=== PATIENT | male | born 1960 | race Two or more races ===

== ENCOUNTER 2021-01-24 16:06 | Outpatient (CLI) | payer OTHER, SELFPAY ==
[2021-01-24 16:31] LABS: Basophils Absolute Auto 0.1 K/mm3 (0.0-0.1); Basophils Percent Auto 0.5 % (0.2-1.2); Eosinophils Absolute Auto 0.2 K/mm3 (0-0.3); Eosinophils Percent Auto 1.6 % (0-4.4); Hematocrit 39.2 % (42.0-52.0); Hemoglobin 12.8 g/dL (14.0-18.0); Immature Granulocyte Absolute 0.02 K/mm3 (0.00-0.031); Immature Granulocyte Percent A 0.2 % (0-0.5); Lymphocytes Absolute Auto 5.08 K/mm3 (0.9-3.2); Lymphocytes Percent Auto 48.9 % (18.3-44.2); Mean Corpuscular HGB Conc 32.7 g/dl (32-36); Mean Corpuscular Hemoglobin 30.5 pg (26-34); Mean Corpuscular Volume 93.6 fl (80-100); Mean Platelet Volume 10.5 fl (7.4-10.4); Monocytes Absolute Auto 0.6 K/mm3 (0.1-0.6); Monocytes Percent Auto 5.7 % (2.6-8.5); Neutrophils Absolute Auto 4.5 K/mm3 (1.3-6.7); Neutrophils Percent Auto 43.1 % (45.5-73.1); Platelet Count Result 253 k/mm3 (150-375); Red Blood Count 4.19 M/mm3 (4.6-6.20); Red Cell Distribution Width 13.6 % (11.5-14.5); White Blood Count 10.4 K/mm3 (4.5-10.0)
[2021-01-24 16:43] LABS: Alanine Aminotransferase 15 U/L (4-50); Albumin Level 4.3 g/dL (3.5-5.1); Alkaline Phosphatase 59 U/L (38-126); Anion Gap 8 mmol/L (8-16); Aspartate Amino Transferase 29 U/L (17-59); Bilirubin,Total 0.2 mg/dL (0.2-1.3); Blood Urea Nitrogen 19 mg/dL (9-20); Calcium 9.2 mg/dL (8.4-10.2); Carbon Dioxide 28 mmol/L (22-30); Chloride 105 mmol/L (98-107); Cholesterol 177 mg/dL (0-200); Estimated Glomerular Filt Rate > 60; Glucose 83 mg/dL (75-110); HDL Direct 39 mg/dL; Potassium 4.2 mmol/L (3.4-5.0); Sodium 141 mmol/L (137-145); Triglycerides 139 mg/dL (<150)
[2021-01-24 16:54] LABS: LDL Cholesterol Direct 89 mg/dL
[2021-01-24 17:13] LABS: Prostate Specific Antigen 0.6 ng/mL (< OR = 4.0)
[2021-01-24 19:11] LABS: Vitamin D 25 Hydroxy 41.8 ng/mL
== END 2021-01-24 16:07 | disposition home or self-care (01) ==
PROVIDERS: PCP Family Medicine; Visit Provider Family Medicine
DX: Z00.00 Encounter for general adult medical examination without abnormal findings (principal); E55.9 Vitamin D deficiency, unspecified; I10 Essential (primary) hypertension; Z12.5 Encounter for screening for malignant neoplasm of prostate; Z13.220 Encounter for screening for lipoid disorders
CPT/HCPCS: 36415; 80053; 80061; 82306; 84153; 84443; 85025

== ENCOUNTER 2021-03-26 08:55 | Outpatient (CLI) | payer OTHER, SELFPAY ==
[2021-03-26 09:40] LABS: Basophils Absolute Auto 0.1 K/mm3 (0.0-0.1); Basophils Percent Auto 0.6 % (0.2-1.2); Eosinophils Absolute Auto 0.2 K/mm3 (0-0.3); Eosinophils Percent Auto 2.5 % (0-4.4); Hematocrit 42.3 % (42.0-52.0); Hemoglobin 13.8 g/dL (14.0-18.0); Immature Granulocyte Absolute 0.02 K/mm3 (0.00-0.031); Immature Granulocyte Percent A 0.2 % (0-0.5); Lymphocytes Absolute Auto 3.89 K/mm3 (0.9-3.2); Lymphocytes Percent Auto 45.7 % (18.3-44.2); Mean Corpuscular HGB Conc 32.6 g/dl (32-36); Mean Corpuscular Hemoglobin 30.3 pg (26-34); Mean Corpuscular Volume 92.8 fl (80-100); Mean Platelet Volume 10.5 fl (7.4-10.4); Monocytes Absolute Auto 0.5 K/mm3 (0.1-0.6); Monocytes Percent Auto 5.5 % (2.6-8.5); Neutrophils Absolute Auto 3.9 K/mm3 (1.3-6.7); Neutrophils Percent Auto 45.5 % (45.5-73.1); Platelet Count Result 273 k/mm3 (150-375); Red Blood Count 4.56 M/mm3 (4.6-6.20); Red Cell Distribution Width 13.2 % (11.5-14.5); White Blood Count 8.5 K/mm3 (4.5-10.0)
[2021-03-26 09:48] LABS: Alanine Aminotransferase 53 U/L (4-50); Albumin Level 4.1 g/dL (3.5-5.1); Alkaline Phosphatase 53 U/L (38-126); Anion Gap 6 mmol/L (8-16); Aspartate Amino Transferase 96 U/L (17-59); Bilirubin,Total 0.5 mg/dL (0.2-1.3); Blood Urea Nitrogen 14 mg/dL (9-20); Calcium 8.9 mg/dL (8.4-10.2); Carbon Dioxide 28 mmol/L (22-30); Chloride 102 mmol/L (98-107); Cholesterol 167 mg/dL (0-200); Estimated Glomerular Filt Rate > 60; Glucose 96 mg/dL (65-110); HDL Direct 35 mg/dL; Potassium 4.1 mmol/L (3.4-5.0); Sodium 136 mmol/L (137-145); Triglycerides 60 mg/dL (<150)
[2021-03-26 09:59] LABS: LDL Cholesterol Direct 99 mg/dL
[2021-03-26 10:44] LABS: Vitamin D 25 Hydroxy 59.9 ng/mL
[2021-03-26 10:59] LABS: Prostate Specific Antigen 0.4 ng/mL (< OR = 4.0)
== END 2021-03-26 08:56 | disposition home or self-care (01) ==
LOC: ANHLAB 08:57
PROVIDERS: PCP Family Medicine; Visit Provider Family Medicine
DX: Z00.00 Encounter for general adult medical examination without abnormal findings (principal); I10 Essential (primary) hypertension; Z13.220 Encounter for screening for lipoid disorders; E55.9 Vitamin D deficiency, unspecified; Z12.5 Encounter for screening for malignant neoplasm of prostate
CPT/HCPCS: 36415; 80053; 80061; 82306; 84153; 84443; 85025; G0103

== ENCOUNTER 2021-04-22 08:20 | Outpatient (CLI) | payer OTHER, SELFPAY ==
[2021-04-22 09:56] LABS: Alanine Aminotransferase 32 U/L (4-50); Albumin Level 4.3 g/dL (3.5-5.1); Alkaline Phosphatase 67 U/L (38-126); Aspartate Amino Transferase 64 U/L (17-59); Bilirubin,Total 0.4 mg/dL (0.2-1.3)
== END 2021-04-22 08:21 | disposition home or self-care (01) ==
LOC: ANHLAB 08:22
PROVIDERS: PCP Family Medicine; Visit Provider Nurse Practitioner Family
DX: R74.8 Abnormal levels of other serum enzymes (principal)
CPT/HCPCS: 36415; 80076

== ENCOUNTER 2022-04-29 08:04 | Outpatient (CLI) | payer OTHER, SELFPAY ==
[2022-04-29 08:51] LABS: Basophils Absolute Auto 0.1 K/mm3 (0.0-0.1); Basophils Percent Auto 0.6 % (0.2-1.2); Eosinophils Absolute Auto 0.2 K/mm3 (0-0.3); Eosinophils Percent Auto 1.5 % (0-4.4); Hematocrit 44.2 % (42.0-52.0); Hemoglobin 14.5 g/dL (14.0-18.0); Immature Granulocyte Absolute 0.05 K/mm3 (0.00-0.031); Immature Granulocyte Percent A 0.5 % (0-0.5); Lymphocytes Percent Auto 39.4 % (18.3-44.2); Mean Corpuscular HGB Conc 32.8 g/dl (32-36); Mean Corpuscular Hemoglobin 30.7 pg (26-34); Mean Corpuscular Volume 93.4 fl (80-100); Monocytes Absolute Auto 0.6 K/mm3 (0.1-0.6); Monocytes Percent Auto 5.3 % (2.6-8.5); Neutrophils Absolute Auto 5.8 K/mm3 (1.3-6.7); Neutrophils Percent Auto 52.7 % (45.5-73.1); Platelet Count Result 267 k/mm3 (150-375); Red Blood Count 4.73 M/mm3 (4.6-6.20); Red Cell Distribution Width 13.5 % (11.5-14.5); White Blood Count 10.9 K/mm3 (4.5-10.0)
[2022-04-29 08:59] LABS: Hemoglobin A1C 5.6 % (<5.7)
[2022-04-29 09:00] LABS: Alanine Aminotransferase 24 U/L (6-50); Albumin Level 4.6 g/dL (3.5-5.1); Alkaline Phosphatase 79 U/L (38-126); Anion Gap 9 mmol/L (8-16); Aspartate Amino Transferase 33 U/L (17-59); Bilirubin,Total 0.6 mg/dL (0.2-1.3); Blood Urea Nitrogen 17 mg/dL (9-20); Calcium 9.6 mg/dL (8.4-10.2); Carbon Dioxide 26 mmol/L (22-30); Chloride 103 mmol/L (98-107); Cholesterol 206 mg/dL (0-200); Estimated Glomerular Filt Rate > 60; Glucose 101 mg/dL (65-110); HDL Direct 36 mg/dL; Potassium 4.2 mmol/L (3.4-5.0); Sodium 138 mmol/L (137-145); Triglycerides 123 mg/dL (<150)
[2022-04-29 09:11] LABS: LDL Cholesterol Direct 123 mg/dL
[2022-04-29 09:23] LABS: Vitamin D 25 Hydroxy 50.4 ng/mL
[2022-04-29 09:31] LABS: Prostate Specific Antigen 0.7 ng/mL (< OR = 4.0)
== END 2022-04-29 08:05 | disposition home or self-care (01) ==
LOC: ANHLAB 08:05
PROVIDERS: PCP Family Medicine; Visit Provider Nurse Practitioner
DX: E78.5 Hyperlipidemia, unspecified (principal); Z12.5 Encounter for screening for malignant neoplasm of prostate; E55.9 Vitamin D deficiency, unspecified; R73.9 Hyperglycemia, unspecified; I10 Essential (primary) hypertension
CPT/HCPCS: 36415; 80053; 80061; 82306; 83036; 84153; 85025; G0103

== ENCOUNTER 2022-05-13 10:43 | Outpatient (CLI) | payer OTHER, SELFPAY ==
--- NOTE | ~2022-05-13 | CT_ITS ---
EXAMINATION: CT diagnostic chest wo con DATE: 05/13/2022 11:09 INDICATION: Pulmonary nodules. TECHNIQUE: Computed tomography (CT) of the chest was performed without intravenous contrast. The dose -length product was 142.42 mGy-cm. Automated exposure control and iterative reconstruction technique were employed. COMPARISON: CT dated 09/07/2018 FINDINGS: No significant pleural or pericardial effusion. Heart size normal. The upper abdomen is unr emarkable. There is moderate atherosclerosis of the aorta and coronary arteries. No thoracic lymphade nopathy. Stable 3 mm right upper lobe nodule, image 65. There is right upper lobe atelectasis. Small calcified granuloma right lung base. No new pulmonary nodules or masses. No focal airspace consolidat ion. No endobronchial lesions. No pneumothorax. There is a chronic wedge compression fracture of T8. There are mild wedge deformities of T7 and T9, all chronic. There is mild thoracic spondylosis. There is accentuated thoracic kyphosis. IMPRESSION: 1. Stable 3 mm right upper lobe nodule compared with 09/07/2018. No new pulmonary nodules or masses. Reviewed, dictated and finalized at location A. IMPRESSION: 1. Stable 3 mm right upper lobe nodule compared with 09/07/2018. No new pulmonar y nodules or masses.
== END 2022-05-13 10:44 | disposition home or self-care (01) ==
LOC: ANHIMG 10:45
PROVIDERS: PCP Family Medicine; Visit Provider Nurse Practitioner
DX: R91.1 Solitary pulmonary nodule (principal); I70.0 Atherosclerosis of aorta; I25.10 Atherosclerotic heart disease of native coronary artery without angina pectoris; M40.204 Unspecified kyphosis, thoracic region; M48.54XA Collapsed vertebra, not elsewhere classified, thoracic region, initial encounter for fracture; M47.814 Spondylosis without myelopathy or radiculopathy, thoracic region
CPT/HCPCS: 71250

== ENCOUNTER 2023-02-04 11:05 | Emergency (ER) | payer OTHER, SELFPAY ==
[2023-02-04] VITALS (9 sets, daily range): BP systolic 116–128; BP diastolic 79–92; PULSE 67–84; RESP 13–20; TEMP 36.7; O2SAT 96–100
--- NOTE | ~2023-02-04 | XR_ITS ---
XR chest 2V DATE: 02/04/2023 13:32 INDICATION: Right chest pain on inspiration TECHNIQUE: PA and lateral views COMPARISON: 05/09/2022 CT chest 01/20/2010 two-view chest FINDINGS: Heart size is within normal limits. There is thoracic aortic tortuosity. No hilar or medias tinal enlargement. No pulmonary infiltrate or consolidation, pleural effusion or pulmonary vascular congestion or pneumo thorax is detected. Diffuse osteopenia. There is moderately prominent anterior wedge compression fracture deformity of T8, mildly increased i n severity compared to 01/20/2010. There is degenerative spurring of the thoracic spine. IMPRESSION: No active cardiopulmonary disease Reviewed, dictated and finalized at location A.
--- NOTE | 2023-02-04 11:20 | ECG_ITS ---
Measurements Intervals [place] Rate: 84 P: 35 MD: 149 QRS: 24 QRSD: 93 T: 40 QT: 350 QTc: 415 Interpretive Statements SINUS RHYTHM NORMAL ECG NO PREVIOUS ECG AVAILABLE FOR COMPARISON Electronically Signed On 02-04-2023 12:50:12 CDT by Jae Chavez M.D.
[2023-02-04 11:31] LABS: Basophils Absolute Auto 0.1 K/mm3 (0.0-0.1); Basophils Percent Auto 0.5 % (0.2-1.2); Eosinophils Absolute Auto 0.1 K/mm3 (0-0.3); Hematocrit 40.7 % (42.0-52.0); Hemoglobin 13.5 g/dL (14.0-18.0); Immature Granulocyte Absolute 0.03 K/mm3 (0.00-0.031); Immature Granulocyte Percent A 0.3 % (0-0.5); Lymphocytes Absolute Auto 3.44 K/mm3 (0.9-3.2); Lymphocytes Percent Auto 31.6 % (18.3-44.2); Mean Corpuscular HGB Conc 33.2 g/dl (32-36); Mean Corpuscular Volume 93.6 fl (80-100); Mean Platelet Volume 10.6 fl (7.4-10.4); Monocytes Absolute Auto 0.6 K/mm3 (0.1-0.6); Monocytes Percent Auto 5.4 % (2.6-8.5); Neutrophils Absolute Auto 6.7 K/mm3 (1.3-6.7); Neutrophils Percent Auto 61.2 % (45.5-73.1); Platelet Count Result 243 k/mm3 (150-375); Red Blood Count 4.35 M/mm3 (4.6-6.20); Red Cell Distribution Width 13.7 % (11.5-14.5); White Blood Count 10.9 K/mm3 (4.5-10.0)
[2023-02-04 11:41] LABS: INR 0.9; Prothrombin Time 12.8 Seconds (11.1-14.7)
[2023-02-04 11:43] LABS: Anion Gap 3 mmol/L (8-16); Blood Urea Nitrogen 16 mg/dL (9-20); Carbon Dioxide 28 mmol/L (22-30); Chloride 107 mmol/L (98-107); Estimated CRCL calculation 87 ml/min; Estimated Glomerular Filt Rate > 60; Potassium 4.2 mmol/L (3.4-5.0); Sodium 138 mmol/L (137-145)
[2023-02-04 11:44] LABS: Alanine Aminotransferase 21 U/L (6-50); Albumin Level 4.2 g/dL (3.5-5.1); Alkaline Phosphatase 66 U/L (38-126); Aspartate Amino Transferase 32 U/L (17-59); Bilirubin,Total 0.4 mg/dL (0.2-1.3); Calcium 8.6 mg/dL (8.4-10.2); Glucose 109 mg/dL (65-110); Lipase 250 U/L (23-300)
[2023-02-04 11:55] LABS: Troponin I < 0.012 ng/mL (0.000-0.034)
--- NOTE | 2023-02-04 12:59 | ED.GENADULT ---
HPI - General Adult General Chief complaint: Chest Pain Stated complaint: chest pain Time Seen by Provider: 02/04/23 12:41 History of Present Illness HPI narrative: 62-year-old male presented emerged department for evaluation of sternal chest pain. Patient reports he had been to the chiropractor and was lying on his chest when they cracked his back and he felt a pop across his chest. Patient states that the pain has been persistent over the last few days he reports worsening pain with deep inspiration. Patient did have follow-up again with a chiropractor and they reported that nothing was broken. Patient is going out of town tomorrow and was seeking medications for pain control. 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 Smoking packs per day: 1 Smoking cigarettes per day: 20.0 Years smoked: 40 Smoking pack-years: 40.00 Smoking status: Current every day smoker Tobacco type: cigarettes Second hand tobacco smoke exposure: No Alcohol intake: never Substance use: never Substance use type: does not use Living arrangements: with family Occupation/Education: occupation Gender identity (if verbalized by the patient): Male Sexual Orientation (if Verbalized by the Patient): Straight or Heterosexual Agree to blood products: Yes Exam Narrative: APPEARANCE: Well appearing, no pain, no distress, well-nourished. HEAD: normocephalic, atraumatic. EYES: PERRLA/EOMI, conjunctivae clear. NOSE: Normal no drainage NECK: Supple. No adenopathy, no masses. RESPIRATORY: Airway patent, respirations nonlabored. Clear to auscultation bilaterally, no rales, rhonchi, wheezing. CARDIOVASCULAR: Regular rate and rhythm without murmurs rubs or gallops. ABDOMINAL: Soft, nontender, nondistended, normal bowel sounds MUSCULOSKELETAL: Reproducible chest wall tenderness to palpation. NEURO: Alert. Cranial nerves II through XII intact. Grossly intact SKIN: Warm, dry. Normal Color Course Course Emergency Course: 62-year-old male presented the ED for evaluation of reproducible chest wall pain after going to a chiropractor. Patient has normal vital signs. Patient's EKG showed no evidence of ischemia. Chest x-ray showed no acute cardiopulmonary abnormality. Patient's afebrile with a leukocytosis of 10.9. Recent hemoglobin is stable. Patient had a negative troponin and no significant electrolyte abnormalities. Patient does have reproducible muscular tenderness to palpation. No fractures, or pneumothorax were noted on the chest x-ray. Patient will be provided medications for pain control for rib contusions or subtle fractures. Patient was updated on the results of the work-up and was comfortable to plan for discharge and close follow-up. Vital Signs Vital signs: Vital Signs Temperature 98.0 F 02/04/23 11:07 Pulse Rate 77 02/04/23 11:07 Respiratory Rate 16 02/04/23 11:07 Blood Pressure 116/79 02/04/23 11:07 Pulse Oximetry 100 02/04/23 11:07 Oxygen Delivery Room Air 02/04/23 11:07 Temperature 98.0 F 02/04/23 11:07 Pulse Rate 75 02/04/23 14:32 Respiratory Rate 20 02/04/23 14:32 Blood Pressure 128/92 H 02/04/23 14:32 Pulse Oximetry 100 02/04/23 14:32 Oxygen Delivery Room Air 02/04/23 11:07 Medical Decision Making Differential Diagnosis Differential Diagnosis: Pneumonia, pneumothorax, rib fracture, rib contusion, costochondritis Vital Signs
[2023-02-04] MEDS: KETOROLAC 30 MG/ML VIAL (*BKC) IM (13:23)
[2023-02-04] MEDS: CYCLOBENZAPRINE HCL 10 MG TABLET PO (13:23)
== END 2023-02-04 14:33 | disposition home or self-care (01) ==
PROVIDERS: Emergency Medicine; Emergency Provider Emergency Medicine; PCP Family Medicine
DX: R07.89 Other chest pain (principal); S20.214A Contusion of middle front wall of thorax, initial encounter; F17.210 Nicotine dependence, cigarettes, uncomplicated; I10 Essential (primary) hypertension; X50.0XXA Overexertion from strenuous movement or load, initial encounter
CPT/HCPCS: 36415; 71046; 80053; 83690; 84484; 85025; 85610; 85730; 93005; 96372; 99284; A9270; J1885

== ENCOUNTER 2023-08-18 08:57 | Outpatient (CLI) | payer OTHER, SELFPAY ==
[2023-08-18 09:15] LABS: Basophils Percent Auto 0.2 % (0.2-1.2); Eosinophils Absolute Auto 0.1 K/mm3 (0-0.3); Eosinophils Percent Auto 0.6 % (0-4.4); Hematocrit 44.6 % (42.0-52.0); Hemoglobin 14.2 g/dL (14.0-18.0); Immature Granulocyte Absolute 0.03 K/mm3 (0.00-0.031); Immature Granulocyte Percent A 0.3 % (0-0.5); Lymphocytes Absolute Auto 3.99 K/mm3 (0.9-3.2); Lymphocytes Percent Auto 38.9 % (18.3-44.2); Mean Corpuscular HGB Conc 31.8 g/dl (32-36); Mean Corpuscular Hemoglobin 29.6 pg (26-34); Mean Corpuscular Volume 92.9 fl (80-100); Mean Platelet Volume 10.9 fl (7.4-10.4); Monocytes Absolute Auto 0.5 K/mm3 (0.1-0.6); Monocytes Percent Auto 5.2 % (2.6-8.5); Neutrophils Absolute Auto 5.6 K/mm3 (1.3-6.7); Neutrophils Percent Auto 54.8 % (45.5-73.1); Platelet Count Result 183 k/mm3 (150-375); Red Cell Distribution Width 13.2 % (11.5-14.5); White Blood Count 10.3 K/mm3 (4.5-10.0)
[2023-08-18 09:27] LABS: Alanine Aminotransferase 47 U/L (6-50); Albumin Level 4.3 g/dL (3.5-5.1); Alkaline Phosphatase 73 U/L (38-126); Anion Gap 6 mmol/L (8-16); Aspartate Amino Transferase 62 U/L (17-59); Bilirubin,Total 0.6 mg/dL (0.2-1.3); Blood Urea Nitrogen 13 mg/dL (9-20); Carbon Dioxide 28 mmol/L (22-30); Chloride 104 mmol/L (98-107); Cholesterol 176 mg/dL (0-200); Estimated Glomerular Filt Rate > 60; Glucose 96 mg/dL (65-110); HDL Direct 30 mg/dL; Potassium 4.7 mmol/L (3.4-5.0); Sodium 138 mmol/L (137-145); Triglycerides 162 mg/dL (<150)
[2023-08-18 09:38] LABS: LDL Cholesterol Direct 103 mg/dL
[2023-08-18 10:01] LABS: Vitamin D 25 Hydroxy 40.5 ng/mL
== END 2023-08-18 08:58 | disposition home or self-care (01) ==
LOC: ANHLAB 08:59
PROVIDERS: PCP Family Medicine; Visit Provider Nurse Practitioner Family
DX: Z00.00 Encounter for general adult medical examination without abnormal findings (principal); E78.5 Hyperlipidemia, unspecified; R73.03 Prediabetes; E55.9 Vitamin D deficiency, unspecified; Z13.29 Encounter for screening for other suspected endocrine disorder; E53.8 Deficiency of other specified B group vitamins
CPT/HCPCS: 36415; 80053; 80061; 82306; 82607; 83036; 84443; 85025

== ENCOUNTER 2023-08-30 16:02 | Outpatient (CLI) | payer OTHER, SELFPAY ==
--- NOTE | ~2023-08-30 | XR_ITS ---
EXAMINATION: XR ribs RT 2V w CXR 2V DATE: 08/30/2023 16:15 INDICATION: Pleurodynia TECHNIQUE: PA and lateral views of the chest and 3 views of the right ribs were obtained. COMPARISON: Chest radiograph dated 02/04/2023 FINDINGS: Old healed fractures of the anterior right second-sixth and posterolateral right seventh ribs. No rec ent-appearing rib fractures unchanged mild linear discoid atelectasis in the right midlung zone. No o ther airspace opacities, pulmonary edema, pleural effusion or pneumothorax. Thoracic kyphosis with no change in a couple chronic compression fractures in the midthoracic spine with greatest anterior wed ging at T8. IMPRESSION: 1. A few old right-sided rib fractures. No recent-appearing rib fractures identified. 2. Mild linear discoid atelectasis in the right midlung. No acute cardiopulmonary disease. 3. Thoracic kyphosis with a couple chronic mid thoracic compression fractures. Reviewed, dictated and finalized at location A. EACH SPECIALIST IMPRESSION: 1. A few old right-sided rib fractures. No recent-appearing rib fractures ident ified. 2. Mild linear discoid atelectasis in the right midlung. No acute cardiopulmona ry disease. 3. Thoracic kyphosis with a couple chronic mid thoracic compression fractures.
== END 2023-08-30 16:03 | disposition home or self-care (01) ==
LOC: ANHIMG 16:05
PROVIDERS: PCP Family Medicine; Visit Provider Family Medicine
DX: R07.81 Pleurodynia (principal); Z87.81 Personal history of (healed) traumatic fracture; J98.11 Atelectasis; M40.294 Other kyphosis, thoracic region; M48.54XA Collapsed vertebra, not elsewhere classified, thoracic region, initial encounter for fracture
CPT/HCPCS: 71046; 71100

== ENCOUNTER 2023-09-14 07:24 | Outpatient (CLI) | payer OTHER, SELFPAY ==
--- NOTE | ~2023-09-14 | DEXA_ITS ---
Bone Density Report Name: EZE HARO Age: 63 Sex: Male Ethnicity: White Date of : 1960 Indication: osteoporosis; Referring Provider: VERONICA JHA Study: Bone densitometry was performed. Exam Date: September 14, 2023 Accession number: [id number] Bone Density: Region BMD T-score Z-score Classification AP Spine(L1-L4) 0.610 -4.4 -3.6 Osteoporosis Femoral Neck (Left) 0.615 -2.3 -1.3 Osteopenia Total Hip (Left) 0.665 -2.4 -1.9 Osteopenia Femoral Neck (Right) 0.605 -2.4 -1.4 Osteopenia Total Hip (Right) 0.651 -2.5 -2.0 Osteoporosis Total Hip Mean 0.658 -2.5 -2.0 Osteopenia World Health Organization criteria for BMD impression classify patients as: Normal (T-score at or above -1.0), Osteopenia (T-score between -1.0 and -2.5), or Osteoporosis (T-score at or below -2.5). 10-year Fracture Risk: FRAX not reported because: Some T-score for Spine Total or Hip Total or Femoral Neck at or below -2.5 Previous Exams: Region Exam Age BMD T-score BMD Change BMD Change Date g/cm2 vs Baseline vs Previous AP Spine (L1-L4) 09/14/2023 63 0.610 -4.4 0.045 (8.0%)# -0.017 (-2.8%) 04/11/2017 57 0.627 -4.2 0.063 (11.1%)# 0.063 (11.1%)# 05/26/2013 53 0.564 -4.8 Total Hip(Left) 09/14/2023 63 0.665 -2.4 -0.008 (-1.2%) -0.012 (-1.8%) 04/11/2017 57 0.677 -2.4 0.004 (0.7%)# 0.004 (0.7%)# 05/26/2013 53 0.673 -2.4 Total Hip(Right) 09/14/2023 63 0.651 -2.5 -0.025 (-3.6%) -0.016 (-2.4%) 04/11/2017 57 0.667 -2.4 -0.008 (-1.2%) -0.008 (-1.2%) 05/26/2013 53 0.676 -2.4 *Denotes significance at 95% confidence level, LSC for AP Spine = 0.022 g/cm2, LSC for Total Hip = 0.027 g/cm2 # Denotes dissimilar scan types or analysis methods Clinical Information Provided by Patient: Smokes Patient maximum height was 67 Drinks caffeinated beverages Impression: The patient has osteoporosis, based on the Total Spine T-score. The patient has risk factors, including: smoking. No significant bone loss was observed. Discussion: HIGH RISK OF FRACTURE. BONE DENSITY IS UNDESIRABLY LOW AT ONE OR MORE SKELETAL SITES, CONSISTENT WITH OSTEOPOROSIS. ALSO, BONE DENSITY IS LOWER THAN EXPECTED FOR AGE, SEX AND RACE AT ONE OR MORE SKELETAL SITES; RECOMMEND A DILIGENT SEARCH FOR SECONDARY CAUSES OF BONE LOSS. This patient's lowest T-score meets the World Health Organization's (WHO) criteria for osteoporosis at one or more sites (T-score
== END 2023-09-14 07:25 | disposition home or self-care (01) ==
PROVIDERS: PCP Family Medicine; Visit Provider Family Medicine
DX: M81.0 Age-related osteoporosis without current pathological fracture (principal)
CPT/HCPCS: 77080

== ENCOUNTER 2024-05-23 13:27 | Outpatient (CLI) | payer OTHER, SELFPAY ==
[2024-05-23 16:14] LABS: Basophils Absolute Auto 0.1 K/mm3 (0.0-0.1); Basophils Percent Auto 0.5 % (0.2-1.2); Eosinophils Absolute Auto 0.2 K/mm3 (0-0.3); Eosinophils Percent Auto 1.1 % (0-4.4); Hematocrit 43.5 % (42.0-52.0); Hemoglobin 14.2 g/dL (14.0-18.0); Immature Granulocyte Absolute 0.05 K/mm3 (0.00-0.031); Immature Granulocyte Percent A 0.4 % (0-0.5); Lymphocytes Absolute Auto 3.76 K/mm3 (0.9-3.2); Lymphocytes Percent Auto 28.7 % (18.3-44.2); Mean Corpuscular HGB Conc 32.6 g/dl (32-36); Mean Corpuscular Hemoglobin 30.7 pg (26-34); Mean Platelet Volume 11.4 fl (7.4-10.4); Monocytes Absolute Auto 0.8 K/mm3 (0.1-0.6); Monocytes Percent Auto 6.2 % (2.6-8.5); Neutrophils Absolute Auto 8.2 K/mm3 (1.3-6.7); Neutrophils Percent Auto 63.1 % (45.5-73.1); Platelet Count Result 220 k/mm3 (150-375); Red Blood Count 4.63 M/mm3 (4.6-6.20); Red Cell Distribution Width 13.4 % (11.5-14.5); White Blood Count 13.1 K/mm3 (4.5-10.0)
[2024-05-23 16:39] LABS: Alanine Aminotransferase 28 U/L (6-50); Albumin Level 4.3 g/dL (3.5-5.1); Alkaline Phosphatase 48 U/L (38-126); Anion Gap 6 mmol/L (4-12); Aspartate Amino Transferase 45 U/L (17-59); Bilirubin,Total 0.4 mg/dL (0.2-1.3); Blood Urea Nitrogen 18 mg/dL (9-20); Calcium 9.1 mg/dL (8.4-10.2); Carbon Dioxide 29 mmol/L (22-30); Chloride 102 mmol/L (98-107); Estimated Glomerular Filt Rate > 60; Glucose 118 mg/dL (65-110); Sodium 137 mmol/L (137-145)
== END 2024-05-23 13:28 | disposition home or self-care (01) ==
LOC: ANHGOSHLAB 13:28
PROVIDERS: PCP Family Medicine; Visit Provider Family Medicine
DX: R73.03 Prediabetes (principal); I10 Essential (primary) hypertension; Z79.899 Other long term (current) drug therapy
CPT/HCPCS: 36415; 80053; 83036; 85025

== ENCOUNTER 2024-08-18 18:51 | Emergency (ER) | payer MEDICARE, SELFPAY ==
[2024-08-18 19:05] VITALS: BP 118/83; PULSE 85; RESP 18; TEMP 36.3; O2SAT 98
--- NOTE | 2024-08-18 19:18 | ED.URI ---
HPI - URI/Sore Throat General Chief Complaint: Upper Respiratory Infection Stated Complaint: Cough/Headache Time Seen by Provider: 08/18/24 19:00 Source: patient and RN notes reviewed Mode of arrival: ambulatory Limitations: no limitations History of Present Illness HPI Narrative: Patient presents today complaining of 3 day history of cough, sore throat, headache, fatigue, congestion, sweats and chills. Denies known fever, shortness of breath, chest pain. Symptoms worsened since yesterday. He has been taking DayQuil without relief. He is a smoker, usually 1 pack per day. Related Data Home Medications ?Medication ?Instructions ?Recorded ?Confirmed ?Last Taken ?Type naproxen 500 mg tablet 500 mg PO BID-TID PRN pain 05/22/24 08/18/24 Unknown History Allergies Allergy/AdvReac Type Severity Reaction Status Date / Time No Known Allergies Allergy Mild Verified 08/18/24 18:58 Review of Systems Review of Systems: CONSTITUTIONAL: Denies body aches, fever. + sweats, chills, fatigue EYES: Denies visual changes, redness, or discharge. ENT: Denies rhinorrhea, or otalgia.+ congestion, sore throat CARDIOVASCULAR: Denies chest pain, palpitations, or edema. RESPIRATORY: Denies dyspnea.+ cough GASTROINTESTINAL: Denies abdominal pain, nausea, vomiting, or diarrhea. GENITOURINARY: Denies dysuria or hematuria. SKIN: Denies rash, itching, or wounds. MUSCULOSKELETAL: Denies back pain, joint pain, or myalgia. NEUROLOGIC: Denies numbness, tingling, or weakness.+ headache PSYCH: Denies depression or anxiety. 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 Smoking cigarettes per day: 20.0 Years smoked: 40 Smoking pack-years: 40.00 Smoking status: Current every day smoker Tobacco type: cigarettes Second hand tobacco smoke exposure: No Alcohol intake: never Substance use: never Substance use type: does not use Living arrangements: with family Occupation/Education: occupation Gender identity (if verbalized by the patient): Male Sexual Orientation (if Verbalized by the Patient): Straight or Heterosexual Agree to blood products: Yes Comments At time of signature, I have reviewed and agree with nursing past medical, surgical, social and family history unless otherwise noted. Please see nursing chart for further information. There is no relevant family history pertinent to the presenting complaint Exam Narrative: GENERAL: Mildly ill-appearing, well-nourished, and in no acute distress. HEAD: Normocephalic, atraumatic. EYES: EOMI. No redness or drainage. Conjunctivae normal. ENT: Mucous membranes pink and moist. Nares congested. No rhinorrhea. TMs normal bilaterally. Throat mildly erythematous without edema or exudate. Uvula midline. NECK: Normal AROM. Supple. No lymphadenopathy. CHEST: No respiratory distress. Clear to auscultation. Frequent cough noted. HEART: Regular rate and rhythm. No murmur appreciated. EXTREMITIES: Normal range of motion. No edema. SKIN: Warm, dry, no rash. Capillary refill normal. Normal skin turgor. NEURO: No focal deficits. Alert and oriented x3. Gait steady. PSYCH: Normal affect. No signs of depression or anxiety. Course Course Level of Care: Express Care Visit Vital Signs Vital signs: Vital Signs Temperature 97.4 F L 08/18/24 19:05 Pulse Rate 85 08/18/24 19:05 Respiratory Rate 18 08/18/24 19:05 Blood Pressure 118/83 08/18/24 19:05 Pulse Oximetry 98 08/18/24 19:05 Oxygen Delivery Room Air 08/18/24 19:05 Temperature 97.4 F L 08/18/24 19:05 Pulse Rate 85 08/18/24 19:05 Respiratory Rate 18 08/18/24 19:05 Blood Pressure 118/83 08/18/24 19:05 Pulse Oximetry 98 08/18/24 19:05 Oxygen Delivery Room Air 08/18/24 19:07 Reviewed MDM - URI/Sore Throat MDM Narrative Medical decision making narrative: Testing negative. Strep culture pending. Symptoms likely viral in etiology. Discussed [id number] medication use and duration of illness. As patient smokes and has persistent cough, prescription for prednisone and Tessalon Perle sent to pharmacy for symptom control. Anticipatory guidance given. ED precautions given. Differential Diagnosis Differential diagnosis: Likely upper respiratory infection, viral infection, bronchitis, influenza, pharyngitis and other (Strep throat, COVID) Lab Data Attestation: I reviewed the patient's lab results. Lab results narrative: Rapid strep negative Labs: Lab Results 08/18/24 Range/Units 19:25 POC Influenza A Ag Negative (Negative) POC Influenza B Ag Negative (Negative) POC SARS CoV-2 Ag Negative (Negative) Critical Care Time Critical Care Time Critical Care Time: No Discharge Plan Discharge Clinical Impression: Upper respiratory infection Qualifiers: URI type: unspecified URI Qualified Code(s): J06.9 - Acute upper respiratory infection, unspecified Patient Disposition: Home, Self-Care Condition: Stable Instructions: Upper Respiratory Infection (DC) Additional Instructions: Your COVID-19, influenza, and strep throat swabs are all negative today. Please take the prednisone as it can help with your symptoms. The Tessalon Perles can also help with your cough. Rest and stay hydrated. Continue Tylenol for pain if needed. Follow-up with your PCP in 5-7 days if symptoms are not improving. As discussed, please go to the ER immediately if symptoms worsen to include shortness of breath, chest pain, development of new fever greater than 100.3. Your blood pressure was elevated above 120/80 today at Urgent Care. This puts you above the threshold for follow up. Please schedule a followup visit with your personal physician as soon as possible, for further evaluation and treatment. Even blood pressure exceeding 120/80 may indicate pre-hypertension. Patient Language: Tamazight Prescriptions: New benzonatate 200 mg capsule 200 mg PO TID PRN (Reason: cough) Qty: 20 0RF prednisone 20 mg tablet 40 mg PO DAILY 5 Days Qty: 10 0RF No Action naproxen 500 mg tablet 500 mg PO BID-TID PRN (Reason: pain) Rx Instructions: due for an appointment no further refills until seen. tadalafil [Cialis] 20 mg tablet 20 mg PO DAILY PRN (Reason: sexual activity) Qty: 30 0RF Rx Instructions: administer approximately 30min before sexual activity; do not use more than 1 dose per 24hrs. due for an appointment losartan 25 mg tablet 25 mg PO DAILY Qty: 90 1RF Follow-up/Referrals: Giovanni Mccain DO [Primary Care Provider] - Time of Disposition: 19:32
[2024-08-18 19:27] LABS: EDCOVIDSCREEN Negative (Negative); EDINFLUASCREEN Negative (Negative); EDINFLUBSCREEN Negative (Negative)
[2024-08-18 19:35] LABS: EDSTREPNEGPOS1 Negative (Negative)
== END 2024-08-18 19:35 | disposition home or self-care (01) ==
PROVIDERS: Emergency Provider Nurse Practitioner; PCP Internal Medicine
DX: J06.9 Acute upper respiratory infection, unspecified (principal); Z20.822 Contact with and (suspected) exposure to COVID-19; F17.210 Nicotine dependence, cigarettes, uncomplicated; I10 Essential (primary) hypertension; R73.03 Prediabetes; M81.0 Age-related osteoporosis without current pathological fracture; E55.9 Vitamin D deficiency, unspecified
CPT/HCPCS: 87081; 87426; 87804; 87880; 99213; G0463

== ENCOUNTER 2024-11-28 11:31 | Outpatient (CLI) | payer OTHER, SELFPAY ==
[2024-11-28 12:07] LABS: Basophils Absolute Auto 0.1 K/mm3 (0.0-0.1); Basophils Percent Auto 0.5 % (0.2-1.2); Eosinophils Absolute Auto 0.1 K/mm3 (0-0.3); Eosinophils Percent Auto 1.2 % (0-4.4); Hematocrit 45.8 % (42.0-52.0); Hemoglobin 14.9 g/dL (14.0-18.0); Immature Granulocyte Absolute 0.03 K/mm3 (0.00-0.031); Immature Granulocyte Percent A 0.3 % (0-0.5); Lymphocytes Absolute Auto 3.87 K/mm3 (0.9-3.2); Lymphocytes Percent Auto 37.1 % (18.3-44.2); Mean Corpuscular HGB Conc 32.5 g/dl (32-36); Mean Corpuscular Hemoglobin 30.2 pg (26-34); Mean Corpuscular Volume 92.9 fl (80-100); Mean Platelet Volume 10.4 fl (7.4-10.4); Monocytes Absolute Auto 0.4 K/mm3 (0.1-0.6); Monocytes Percent Auto 4.2 % (2.6-8.5); Neutrophils Absolute Auto 5.9 K/mm3 (1.3-6.7); Neutrophils Percent Auto 56.7 % (45.5-73.1); Platelet Count Result 259 k/mm3 (150-375); Red Blood Count 4.93 M/mm3 (4.6-6.20); Red Cell Distribution Width 13.2 % (11.5-14.5); White Blood Count 10.4 K/mm3 (4.5-10.0)
[2024-11-28 12:19] LABS: Hemoglobin A1C 5.9 % (<5.7)
[2024-11-28 12:21] LABS: Alanine Aminotransferase 19 U/L (6-50); Albumin Level 4.8 g/dL (3.5-5.1); Alkaline Phosphatase 59 U/L (38-126); Anion Gap 11 mmol/L (4-12); Aspartate Amino Transferase 28 U/L (17-59); Bilirubin,Total 0.4 mg/dL (0.2-1.3); Blood Urea Nitrogen 21 mg/dL (9-20); Calcium 9.4 mg/dL (8.4-10.2); Carbon Dioxide 28 mmol/L (22-30); Chloride 102 mmol/L (98-107); Cholesterol 206 mg/dL (0-200); Estimated Glomerular Filt Rate > 60; Glucose 98 mg/dL (65-110); HDL Direct 40 mg/dL; Potassium 4.3 mmol/L (3.4-5.0); Sodium 141 mmol/L (137-145); Triglycerides 124 mg/dL (<150)
[2024-11-28 12:33] LABS: LDL Cholesterol Direct 129 mg/dL
[2024-11-28 12:45] LABS: Vitamin D 25 Hydroxy 55.7 ng/mL
[2024-11-28 12:50] LABS: Prostate Specific Antigen 0.6 ng/mL (< OR = 4.0)
== END 2024-11-28 11:32 | disposition home or self-care (01) ==
PROVIDERS: PCP Family Medicine; Visit Provider Family Medicine
DX: I10 Essential (primary) hypertension (principal); Z00.00 Encounter for general adult medical examination without abnormal findings; E78.5 Hyperlipidemia, unspecified; E55.9 Vitamin D deficiency, unspecified; R73.03 Prediabetes; E53.8 Deficiency of other specified B group vitamins; Z12.5 Encounter for screening for malignant neoplasm of prostate
CPT/HCPCS: 36415; 80053; 80061; 82306; 82607; 83036; 84153; 84443; 85025; G0103

== ENCOUNTER 2024-12-10 14:08 | Outpatient (CLI) | payer OTHER, SELFPAY ==
--- NOTE | ~2024-12-10 | CT_ITS ---
CLINICAL INDICATION: Current smoker COMPARISON: 05/13/2022 and 09/07/2018. TECHNIQUE: Multiple contiguous axial images of the chest was performed without the administration of intravenous contrast. This CT examination was performed utilizing dose reduction techniques. DLP: 94 mGy-cm FINDINGS/OBSERVATIONS: LUNG:Redemonstration of a pleural-based 4.5 mm nodule within the right upper lobe (axial series, imag e 59) decreased in size from prior examination dated 05/13/2022, when it measured 4.8 mm. The remainder of the lungs are otherwise clear. HEART: The heart is of normal size, without pericardial effusion. MEDIASTINUM: No pathologically enlarged or morphologically suspicious lymph nodes are identified within the medias tinum, bilateral axilla, within the soft tissues of the anterior chest wall. SOFT TISSUES OF THE CHEST: Unremarkable. BONES OF THE CHEST: No acute fracture. No lytic or blastic lesions are identified. UPPER ABDOMEN: The bilateral adrenal glands are unremarkable. IMPRESSION: 4.5 mm nodule within the right upper lobe, decreased in size from previous examination when it measur ed 4.8 mm. Lung-RADS category 2: Benign appearance or behavior. Continue annual screening with noncontrast low-d ose chest CT in 12 months. Reviewed, dictated and finalized at location A. IMPRESSION: 4.5 mm nodule within the right upper lobe, decreased in size from previous exam ination when it measured 4.8 mm. Lung-RADS category 2: Benign appearance or behavior. Continue annual screening with noncontrast low-dose chest CT in 12 months.
== END 2024-12-10 14:09 | disposition home or self-care (01) ==
PROVIDERS: PCP Family Medicine; Visit Provider Family Medicine
DX: Z12.2 Encounter for screening for malignant neoplasm of respiratory organs (principal); Z87.891 Personal history of nicotine dependence; R91.1 Solitary pulmonary nodule
CPT/HCPCS: 71271

== ENCOUNTER 2025-01-09 08:36 | Outpatient (CLI) | payer OTHER, SELFPAY ==
--- NOTE | ~2025-01-09 | US_ITS ---
EXAMINATION: US aorta [facility] DATE: 01/09/2025 10:22 CDT INDICATION: Screening for aneurysm. Nicotine dependence. TECHNIQUE: Grayscale, color Doppler, and pulsed Doppler images of the aorta and common iliac arteries were obtained. COMPARISON: None. FINDINGS: The proximal aorta measures 4.7 cm greatest sagittal dimension. The mid aorta measures 4.7 cm greates t sagittal dimension. The distal aorta measures 4.3 cm greatest sagittal dimension. The right common internal iliac artery measures 2.1 cm. The left common iliac artery measures 2 cm. IMPRESSION: 1. Diffuse fusiform dilation of the aorta and common iliac arteries with maximum sagittal dimension o f 4.7 cm. Reviewed, dictated and finalized at location [] IMPRESSION: 1. Diffuse fusiform dilation of the aorta and common iliac arteries with maximu m sagittal dimension of 4.7 cm.
== END 2025-01-09 08:37 | disposition home or self-care (01) ==
LOC: ANHIMG 08:40
PROVIDERS: PCP Family Medicine; Visit Provider Family Medicine
DX: Z13.6 Encounter for screening for cardiovascular disorders (principal)
CPT/HCPCS: 76706

== ENCOUNTER 2025-01-30 06:32 | Outpatient (CLI) | payer OTHER, SELFPAY ==
--- NOTE | ~2025-01-30 | CT_ITS ---
CT of the Abdomen and Pelvis: Indication: Aortic ectasia Technique: 2.5 mm axial scans were obtained through the abdomen and pelvis following intravenous adm inistration of 100 cc of Omnipaque 350. Dose reduction technique was used on this scan by utilizing a utomated exposure control and iterative reconstruction technique. The dose-length product (DLP) was 3 64.29 mGy-cm. Findings: Scans through the lung bases are unremarkable. The liver, spleen, pancreas, gallbladder, adrenals and kidneys are within normal limits. No lymphaden opathy. Infrarenal abdominal aortic aneurysm measures 6 cm in diameter, and extensive mural thrombus. 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 There is diffuse aneurysmal dilatation of the left common iliac artery to 3.6 cm in diameter, again with neur al thrombus in both of these aneurysms as well. No bowel obstruction or bowel wall thickening. There is no evidence to suggest acute appendicitis. Images through the pelvis were performed. Urinary bladder unremarkable. No pelvic mass. No ascites. Impression: 6 cm infrarenal abdominal aortic aneurysm. Diffuse aneurysmal dilatation of the right common iliac ar jossy to 4.9 cm, and of the left common iliac artery to 3.6 cm. Reviewed, dictated and finalized at location . Impression: 6 cm infrarenal abdominal aortic aneurysm. 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 6 cm.
--- OUTSIDE RECORDS SUMMARY | 2025-01-30 06:37 | XMS_ITS | Referral Summary ---
Author Organization [facility] Address [address] [place] [id number] Care Team Providers Care Slicer Machine Operator Name Role Phone Yashira Zaman MD Primary Care Provider Encounters Date Type Department Care Team Description 01/22/2025 Telephone [facility] at [address] [place] [phone] Jasmin Romo MA 01/22/2025 Orders Only [facility] and Vein Surgery [address] [facility] [address] [place] [phone] Cristi Thayer MD Aortic ectasia 01/21/2025 Orders Only [facility] at [address] [place] [phone] Cristi Thayer MD Aortic ectasia (Primary Dx) 01/21/2025 9:15 AM CDT Office Visit [facility] at [address] [place] [phone] Katherine Dias PA Infrarenal abdominal aortic aneurysm (AAA) without rupture (Primary Dx); Bilateral iliac artery aneurysm; Essential hypertension; Smoker from Last 3 Months Allergies No known active allergies Medications losartan (COZAAR) 25 mg tablet 5 Active tadalafiL (ADCIRCA) 10 mg tablet Take 1 tablet (10 mg total) by mouth daily as needed for erectile dysfunction Active acetaminophen (TYLENOL) 325 mg tablet Take 2 tablets (650 mg total) by mouth every 6 (six) hours as needed for pain Active acetaminophen (TYLENOL) 325 mg suppository Insert 1 suppository (325 mg total) into the rectum every 4 (four) hours as needed for pain 025 Discontin ued(Other ) Active Problems Problem Noted Date Diagnosed Date Infrarenal abdominal aortic aneurysm (AAA) witho ut rupture 01/22/2025 Assessment & Plan (01/22/2025 1:16 PM CDT): Patient with 4.7 cm infrarenal abdominal aortic aneurysm. Will proceed with CTA abdomen and pelvis for further evaluation regarding vasculature and follow up in the office for discussion regarding results in 1 week. Essential hypertension 01/22/2025 Overview (01/22/2025): losartan Smoker 01/22/2025 Bilateral iliac artery aneurysm 01/22/2025 Assessment & Plan (01/22/2025 1:17 PM CDT): CTA abdomen and pelvis follow up in the office in 1 week. 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 Gender Identity Not on file Sexual Orientation Not on file Last Filed Vital Signs Vital Sign Reading Time Taken Comments Blood Pressure 109/71 01/21/2025 9:48 AM CDT Pulse 99 01/21/2025 9:48 AM CDT Temperature - - Respiratory Rate - - Oxygen Saturation 99% 01/21/2025 9:48 AM CDT Inhaled Oxygen Concentration - - Weight 78 kg (172 lb) 01/21/2025 9:48 AM CDT Height 170.2 cm (5' 7) 01/21/2025 9:48 AM CDT Body Mass Index 26.94 01/21/2025 9:48 AM CDT Plan of Treatment Not on file Insurance [employer] P[employer] Care Teams Slicer Machine Operator Relationship Specialty Start Date End Date Yashira Zaman MD [facility] [place] [address] PCP - General Family Practice 01/13/25
--- OUTSIDE RECORDS SUMMARY | 2025-01-30 06:37 | XMS_ITS | Clinical Summary ---
Author Organization [facility] Office Center Address [address] [place] [address] Care Team Providers Care Campus Recruiter Name Role Phone Yashira Zaman MD Primary Care Provider Allergies No known active allergies Medications losartan [...] in 1 week. 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 at [address] [place] [address] Jasmin Romo MA 01/22/2025 Orders Only [facility] [address] [place] [address] Cristi Thayer MD Aortic ectasia 01/21/2025 9:15 AM CDT Office Visit [facility] [address] [place] [address] Katherine Dias PA Infrarenal abdominal aortic aneurysm (AAA) without rupture (Primary Dx); Bilateral iliac artery aneurysm; Essential hypertension; Smoker 01/21/2025 Orders Only [facility] at [address] [place] [address] Cristi Thayer MD Aortic ectasia (Primary Dx) from Last 3 Months Social History Tobacco Use Types Packs/Day Years Used Date Smoking Tobacco: Every Day Sex and Gender Information Value Date Recorded Sex Assigned at Not on file 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 Gender Identity Not on file Sexual Orientation Not on file Obstetrics History Last Filed Vital Signs Vital Sign Reading [...] 01/21/2025 9:48 AM CDT Plan of Treatment Health Maintenance Due Date Last Done Comments Colon Cancer Screening-Colonoscopy 1959 Depression Screening 1959 Fall Risk Assessment 1959 Hepatitis C Screening 1959 Prostate Cancer Screening-PSA 1959 DTaP/Tdap/Td Vaccine (1 - Tdap) 1970 Hepatitis B Screening 1977 Zoster Vaccine (1 of 2) 2009 Well Visit 65+ 2024 Covid-19 Vaccine (3 - 2023- season) 04/20/202406/2021, 11/07/2020 Influenza Vaccine (Season Ended) 2025 Pneumococcal vaccine 65+ Completed 05/22/2024 Abdominal Aortic Aneurysm (AAA) Screen Completed , 01/21/2025 Insurance [employer] P[employer] Care Teams Campus Recruiter Relationship Specialty Start Date End Date Yashira Zaman MD [address] [place] [address] PCP - General Family Practice 01/13/25
[2025-01-30 07:05] LABS: Estimated Glomerular Filt Rate > 60
== END 2025-01-30 06:33 | disposition home or self-care (01) ==
PROVIDERS: PCP Family Medicine
DX: I71.43 Infrarenal abdominal aortic aneurysm, without rupture (principal); I72.3 Aneurysm of iliac artery; I77.811 Abdominal aortic ectasia
CPT/HCPCS: 74174; Q9967

== ENCOUNTER 2025-06-10 13:48 | Outpatient (CLI) | payer OTHER, SELFPAY ==
[2025-06-10 15:05] LABS: Hematocrit 43.4 % (42.0-52.0); Hemoglobin 14.0 g/dL (14.0-18.0); Immature Granulocyte Percent A 0.2 % (0-0.5); Lymphocytes Absolute Auto 4.04 K/mm3 (0.9-3.2); Mean Corpuscular HGB Conc 32.3 g/dl (32-36); Mean Corpuscular Hemoglobin 29.5 pg (26-34); Mean Corpuscular Volume 91.6 fl (80-100); Nucleated Red Blood Cells Absolute Auto 0.000 K/mm3 (0.0-0.012); Nucleated Red Blood Cells Perc 0.0 % (0.0-0.2); Platelet Count Result 246 k/mm3 (150-375); Red Blood Count 4.74 M/mm3 (4.6-6.20); White Blood Count 10.1 K/mm3 (4.5-10.0)
[2025-06-10 15:56] LABS: Alanine Aminotransferase 19 U/L (6-50); Albumin Level 4.5 g/dL (3.5-5.1); Alkaline Phosphatase 83 U/L (38-126); Anion Gap 8 mmol/L (4-12); Aspartate Amino Transferase 44 U/L (17-59); Bilirubin,Total 0.3 mg/dL (0.2-1.3); Blood Urea Nitrogen 16 mg/dL (9-20); Calcium 9.1 mg/dL (8.4-10.2); Carbon Dioxide 26 mmol/L (22-30); Chloride 102 mmol/L (98-107); Estimated Glomerular Filt Rate > 60; Glucose 93 mg/dL (65-110); Potassium 4.4 mmol/L (3.4-5.0); Sodium 136 mmol/L (137-145); Total Protein 7.8 g/dL (6.3-8.2)
--- OUTSIDE RECORDS SUMMARY | 2025-06-10 17:46 | XMS_ITS | Clinical Summary ---
Author Organization [facility] [address] Address [address] [place] [address] Care Team Providers Care Hose Stripper Name Role Phone Yashira Zaman MD Primary Care Provider Sharif Bell MD Unavailable Allergies No known active allergies Medications losartan (COZAAR) 25 mg tablet Take 1 tablet (25 mg total) by mouth daily 5 Active tadalafiL (ADCIRCA) 10 mg tablet Take 1 tablet (10 mg total) by mouth daily as needed for erectile dysfunction Active acetaminophen (TYLENOL) 325 mg tablet Take 2 tablets (650 mg total) by mouth every 6 (six) hours as needed for pain Active aspirin 81 mg enteric coated tablet Take 1 tablet (81 mg total) by mouth daily Active calcium carbonate (OS-DEO) 1,250 mg (500 mg elemental) tablet Take 1 tablet (1,250 mg total) by mouth daily Active cholecalciferol 400 unit capsule Take 1 tablet/capsule (400 Units total) by mouth daily Active Active Problems Problem Noted Date Diagnosed Date 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 Patient states he is recovering well denies any current issues to the groins. Does have some left hip/back pain that is radiating down the leg when he walks with this is progressively getting better. No other concerns today. Follow-up in the next month with postoperative CTA abdomen and pelvis Assessment & Plan (02/12/2025 11:53 AM CDT): 6 cm AAA, risks benefits alternatives to endovascular abdominal aortic aneurysm repair were discussed, risks including bleeding, infection, perforation, contrast induced nephropathy, dissection, thrombosis, distal embolization, renal failure, mesenteric ischemia, ischemia to the pelvis or legs, [place] stroke and . He wished proceed. Assessment & Plan (02/05/2025 10:16 AM CDT): 6 cm AAA, 5 cm right iliac aneurysms, 3.6 cm left iliac artery aneurysms, this is per report at [facility]. I discussed the findings with the patient and we discussed overall management of aneurysms disease, given the size of all his aneurysms these would need to be repaired. I would like to get his imaging for further evaluation to determine if he has an endovascular candidate. He also has prominent pulses behind the knee with an extensive family of aneurysms, I have ordered bilateral extremity arterial duplex rule out popliteal artery aneurysms. We will plan for repeat evaluation in 1-2 weeks once I can obtain his imaging. Assessment & Plan (01/22/2025 1:16 PM CDT): Patient with 4.7 cm infrarenal abdominal aortic aneurysm. Will proceed with CTA abdomen and pelvis for further evaluation regarding vasculature and follow up in the office for discussion regarding results in 1 week. Essential hypertension 01/22/2025 Overview (01/22/2025): losartan Assessment & Plan (02/12/2025 11:54 AM CDT): Stable continue losartan Assessment & Plan (02/05/2025 10:16 AM CDT): Stable continue losartan Smoker 01/22/2025 Bilateral iliac artery aneurysm 01/22/2025 Assessment & Plan (02/12/2025 11:54 AM CDT): Bilateral iliac artery aneurysms and we will be repaired endovascular the during the AAA repair. Risks benefits and alternatives discussed. We discussed specifically iliac branch device versus coil embolization and covering of the hypogastric artery. We discussed risk of pelvic ischemia, buttock claudication. We will tentatively plan for bilateral iliac branch device however if needed we will coil embolized the left hypogastric artery and extended into the external iliac artery. He wished proceed. Assessment & Plan (02/05/2025 10:16 AM CDT): Bilateral common iliac artery aneurysms, both at sizes that need repaired. These to be repaired during his AAA repair. Assessment & Plan (01/22/2025 1:17 PM CDT): CTA abdomen and pelvis follow up in the office in 1 week. 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 Encounters Date Type Department Care Team Description 04/23/2025 10:15 AM CDT Ancillary Procedure [facility] Cardiology [address] [place] [phone] Essential hypertension 04/23/2025 Results Follow-Up [facility] Cardiology [address] [facility] [facility] [address], [place] [phone] Colt De León MD Transthoracic Echo (TTE) Complete W Doppler/CF 04/23/2025 Orders Only [facility] Vascular and Vein Surgery [address] [place] [address] Cristi Thayer MD 04/22/2025 8:45 AM CDT Office Visit [facility] Vascular at [address] [place] [address] Katherine Dias PA Infrarenal abdominal aortic aneurysm (AAA) without rupture (Primary Dx) 04/22/2025 Orders Only [facility] Vascular at [address] [place] [address] Cristi Thayer MD Aftercare following surgery of the circulatory system (Primary Dx) 04/15/2025 10:32 AM CDT - 04/15/2025 11:59 PM CDT Hospital Encounter [address] [address] Aftercare following surgery of the circulatory system Discharge Disposition: Discharge to home or self care 04/14/[address] [address] Cammy Prabhakar 03/30/2025 12:45 PM CDT Office Visit [facility] Cardiology [address] [facility] [address] [place] [phone] Colt De León MD Essential hypertension (Primary Dx); Infrarenal abdominal aortic aneurysm (AAA) without rupture; Lipid screening; Smoker 03/25/2025 10:30 AM CDT Office Visit [facility] Vascular at [address] [place] [address] Stephie Lemos NP Infrarenal abdominal aortic aneurysm (AAA) without rupture (Primary Dx) 03/25/2025 Orders Only [facility] Vascular at [address] [place] [address] Cristi Thayer MD Aftercare following surgery of the circulatory system (Primary Dx) 03/18/2025 Telephone [facility] Vascular and Vein Surgery [address] [facility] [address] [place] [address] Nevaeh Mills RN 03/09/2025 5:46 AM CDT - 03/10/2025 12:56 PM CDT Hospital Encounter [facility] Center [address] [facility] [place] [address] Cristi Thayer MD Infrarenal abdominal aortic aneurysm (AAA) without rupture; Bilateral aneurysm of iliac artery Discharge Disposition: Discharge to home or self care from Last 3 Months Medical History Medical History Date Comments AAA (abdominal aortic aneurysm) Hypertension ED (erectile dysfunction) Wears reading glasses Missing tooth, acquired I have some missing teeth Social History Tobacco Use Types Packs/Day Years Used Date Smoking Tobacco: Every Day Cigarettes 0.8 46.8 Started: 1978 Passive Smoke Exposure: Current Smokeless Tobacco: Never Tobacco Cessation:Ready to Q uit: Not Asked; Counseling Given: Not Answered Comments:Last cigarette 03/08/25 @ 1900 [facility] Utilities Answer Date Recorded In the past 12 months has e iHandle, gas, oil, or water [employer] threatened to shut off services in your home? No 03/10/2025 Social Connection and Isolation Panel Answer Date Recorded In a typical week, how many times do you talk on the phone with family, friends, or neighbors? More than three times a week 03/10/2025 How often do you get togethe r with friends or relatives? More than three times a week 03/10/2025 How often do you attend chur ch or anabaptism services? 1 to 4 times per year 03/10/2025 Do you belong to any clubs o r organizations such as sabianist groups, unions, fraternal or athletic groups, or school groups? No 03/10/2025 How often do you attend meet ings of the clubs or organizations you belong to? 1 to 4 times per year 03/10/2025 Are you , , di vorced, , never , or living with a partner? 03/10/2025 AUDIT-C Answer Date Recorded Q1: How often do you have a drink containing alcohol? Never 03/09/2025 Q2: How many drinks containi ng alcohol do you have on a typical day when you are drinking? Patient does not drink Frequency of Binge Drinking Not on file 02/18 Overall Financial Resource Strain (CARDIA) Answe r Date Recorded How hard is it for you to pa y for the very basics like food, housing, medical care, and heating? Not hard at all 03/10/2025 Hunger Vital Sign Answer Date Recorded Within the past 12 months, y ou worried that your food would run out before you got the money to buy more. Never true 03/10/20 25 Within the past 12 months, t he food you bought just didn't last and you didn't have money to get more. Never true 03/10/2025 PRAPARE - Transportation Answer Date Re corded In the past 12 months, has l ack of transportation kept you from medical appointments or from getting medications? No 02/18 In the past 12 months, has l ack of transportation kept you from meetings, work, or from getting things needed for daily living? No 03/10/2025 Housing Stability Vital Sign Answer Connor e Recorded In the last 12 months, was t here a time when you were not able to pay the mortgage or rent on time? No 03/10/2025 In the past 12 months, how m any times have you moved where you were living? 0 03/10/2025 At any time in the past 12 m [facility], were you homeless or living in a long-term (including now)? No 03/10/2025 Personal Safety Answer Date Recorded Have you ever been in or are you currently in a harmful physical or emotional relationship or is someone making you feel afraid or unsafe? 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 Gender Identity Not on file Sexual Orientation Not on file Obstetrics History Last Filed Vital Signs Vital Sign Reading Time Taken Comments Blood Pressure 111/70 04/22/2025 9:01 AM CDT Pulse 87 04/22/2025 9:01 AM CDT Temperature 36.6 C (97.9 F) 03/10/2025 3:42 AM CDT Respiratory Rate 18 03/10/2025 7:38 AM CDT Oxygen Saturation 98% 04/22/2025 9:01 AM CDT Inhaled Oxygen Concentration - - Weight 78.9 kg (174 lb) 04/22/2025 9:01 AM CDT Height 170.2 cm (5' 7) 03/30/2025 12:46 PM CDT Body Mass Index 27.25 03/30/2025 12:46 PM CDT Plan of Treatment Health Maintenance Due Date Last Done Comments Colon Cancer Screening-Colonoscopy 1960 Depression Screening 1960 Hepatitis C Screening 1960 Prostate Cancer Screening-PSA 1959 DTaP/Tdap/Td Vaccine (1 - Tdap) 1970 Hepatitis B Screening 1977 Lung Cancer Screening 2009 Zoster Vaccine (1 of 2) 2009 Well Visit 65+ 2024 Covid-19 Vaccine (3 - 2024-2 6 season) 2025 11/28/2020, 11/07/2020 Influenza Vaccine (#1) 2025 Fall Risk Assessment 03/10/2026 03/10/2025 Pneumococcal vaccine 65+ Completed 05/22/2024 Abdominal Aortic Aneurysm (A AA) Screen Completed 04/22/2025, 04/15/2025, 03/30/2025, Additional history exists Medical Devices Implanted Type Area Dairy Husbandman Device Identifier Shelf Expiration Date Model / Serial / Lot [employer] Kinsman Excluder 14.5mm 12-13.5mm 7cm Pin Machine Tender Iliac Artery Graft [id number] - [id number] - [id number] Implanted:Qty: 1 on 03/09/2025 by David Thayer MD at [facility] Endoprosthesis Left: Common Iliac Artery [employer] [id number] 08/28/2027 [id number] / [id number] / [employer] Excluder 14.5mm 26mm 12cm 5.5cm Conformable Active Control Trunk [id number] - [id number] - [id number] Implanted:Qty: 1 on 03/09/2025 by Cristi Thayer MD at [facility] Endoprosthesis N/A: Aorta [employer] [id number] 11/18/2027 [id number] / [id number] / [employer] Excluder 27mm 21.5-25mm 14cm Stent Abrasion Resistant Sinusoidal [id number] - [id number] - [id number] Implanted:Qty: 1 on 03/09/2025 by Cristi Thayer MD at [facility] Endoprosthesis Right: Common Iliac Artery [employer] [id number] 05/15/2026 [id number] / [id number] / [employer] Vascular System Closure Repair Femoral Artery Suture Mediated Perclose Prostyle 63100-66 - [id number] Implanted:Qty: 4 on 03/09/2025 by Cristi Thayer MD at [facility] Other - see comments Bilateral : Common Femoral Artery [employer] V[employer] [id number] 12/17/2026 [id number] Description:Suture-perclose [employer] Kinsman Excluder 10mm 10cm Branch Component Iliac Graft Endovascular [id number] - [id number] - [id number] Implanted:Qty: 1 on 03/09/2025 by Cristi Thayer MD at [facility] Stent N/A: Aorta [employer] [id number] 10/21/2027 [id number] / [id number] / [employer] Vascular Amplatzer 10mm 7mm 100cm Type Ii Delivery System Optimal Latex Free 9-Avp2-010 - [id number] Implanted:Qty: 1 on 03/09/2025 by Cristi Thayer MD at [facility] Vascular Occlusion Device Left: Internal Iliac (Hypogast jacqueline) Artery [employer] [id number] 11/17/2029 9-AVP2- 010 / / [id number] [employer] Vascular Amplatzer 12mm 9mm 100cm Type Ii Delivery System Optimal Latex Free 9-Avp2-012 - [id number] Implanted:Qty: 1 on 03/09/2025 by Cristi Thayer MD at [facility] Vascular Occlusion Device Left: Internal Iliac (Hypogast jacqueline) Artery [employer] [id number] 09/19/2025 9-AVP2- 012 / / [id number] [employer] Vascular Amplatzer 10mm 7mm 100cm Type Ii Delivery System Optimal Latex Free 9-Avp2-010 - [id number] Implanted:Qty: 1 on 03/09/2025 by Cristi Thayer MD at [facility] Vascular Occlusion Device Left: Internal Iliac (Hypogast jacqueline) Artery [employer] [id number] 11/17/2029 9-AVP2- 010 / / [id number] Wl [employer] Kinsman Excluder 12mm 14cm Contralateral Leg Graft Endovascular [id number] - [id number] - [id number] Implanted:Qty: 1 on 03/09/2025 by Cristi Thayer MD at [facility] [employer] [id number] 10/16/2027 [id number] 00 / [id number] / [employer] Kinsman Excluder 10mm 7cm Internal Component Iliac Graft [id number] - [id number] - [id number] Implanted:Qty: 1 on 03/09/2025 by David Thayer MD at [facility] [employer] [id number] 10/29/2027 [id number] / [id number] / Procedures Procedure Name Priority Date/Time Associated Diagnosis Comments TRANSTHORACIC ECHO (TTE) COMPLETE W DOPPLER/CF WO CONTRAST Routine 04/23/2025 11:05 AM CDT Essential hypertension CTA ABDOMEN PELVIS W WO CONTRAST Schedule Routine, Read Routine (OP Routine) 04/15/2025 11:07 AM CDT Aftercare following surgery of the circulatory system POCT LIPID PANEL Routine 03/30/2025 12:5 3 PM CDT Lipid screening EGFR Routine 03/10/2025 4:29 AM CDT BASIC METABOLIC PANEL Routine 03/10/2025 4:29 AM CDT CBC WITHOUT DIFFERENTIAL Routine 03/10/2025 4:29 AM CDT from Last 3 Months Results * TRANSTHORACIC ECHO (TTE) COMPLETE W DOPPLER/CF WO CONTRAST (04/23/2025 11:05 AM CDT) Estimated EF 50-55 % CONS SCIMAGE EF Mod BP 60 % CONS SCIMAGE Anatomical Region Laterality Modality Ultrasound 04/23/2025 10:1 9 AM CDT Narrative 04/23/2025 4:09 PM CDT [facility] Cardiology [address], [place] [address] [address] [facility] [address], [place] [address] P:[phone] P:[phone] Echocardiographic Report Patient Name: EZE HARO K : 1960 Study Date: 04/23/2025 10:19:00 AM Gender: M Structural Engineering Drafting Officer: Navya Adame)(CT), [facility] Location: [place] [facility] Provider: COLT DE LEÓN Height(Cm): 170 BSA: 1.93 Weight(Kg): 78.9 Heart Rate: 71 BP: 111 / 70 Quality: Good Order Provider: COLT DE LEÓN PROCEDURES: Echocardiographic Report: Transthoracic echocardiogram with complete 2D, M-Mode, and color Doppler examination. With Strain Analysis. INDICATIONS: I10 Essential (primary) hypertension. MEASUREMENTS: 2D/MM Value Range Doppler Value Range EF Mod BP 60 % [ 52 - 72 ] BERTRAM Vmax 2.47 cm2 [ 2.00 - 4.00 ] Estimated EF 50-55 % AV Mean PG 3 mmHg LV GLS -15.13 % AV Peak Blanco 1.15 m/s [ 1.00 - 1.70 ] LVIDd 2D 3.89 cm [ 4.20 - 5.80 ] AV Peak PG 5 mmHg LVIDs 2D 2.58 cm [ 2.50 - 4.00 ] AV VTI 23.31 cm LVPWd 2D 0.95 cm [ 0.60 - 1.00 ] LVOT Diam 2.04 cm [ 1.70 - 2.10 ] IVSd 2D 1.06 cm [ 0.60 - 1.00 ] LVOT Peak Blanco 0.87 m/s [ 0.70 - 1.10 ] AoR Diam 2D 3.94 cm [ 3.10 - 3.70 ] LVOT VTI 16.91 cm LA Volume 28.73 ml [ 18.00 - 58.00 ] MV E Peak Blanco 0.60 m/s [ 0.60 - 1.30 ] LA Volume Index 15 cc/m2 [ 16 - 28 ] MV A Peak Blanco 0.88 m/s [ 1.00 - 1.20 ] RA Volume 28.69 ml MV Decel Time 222 msec [ 104 - 258 ] PV Peak Blanco 0.98 m/s [ 0.40 - 0.80 ] TR Peak Blanco 2.18 m/s [ 1.00 - 2.80 ] TR Peak PG 19 mmHg RVSP 17.00 mmHg [ 10.00 - 36.00 ] RV S` 11.08 mmHg Lateral E` 0.10 m/s [ 0.10 - 0.15 ] Septal E` 0.06 m/s [ 0.08 - 0.15 ] E` 0.08 m/s E/E` 7 Tapse 1.87 cm [ 1.71 - 5.00 ] 2D/MM Value Range Doppler Value Range - FINDINGS: Interpretation Site: Exam was interpreted at [facility]. Left Ventricle: Normal left ventricular size. Normal left ventricular wall thickness. Left ventricular systolic function at the lower limit of normal. Impaired diastolic relaxation Grade I. Ejection fraction is measured at 60 %. Ejection Fraction is visually estimated to be 50-55 %. Global Longitudinal Strain is -15 %. Right Ventricle: Normal right ventricular size. Left Atrium: The left atrium is normal in size. Right Atrium: The right atrium is normal in size. Atrial Septum: Normal atrial septum. Mitral Valve: Normal appearance of the mitral valve. Aortic Valve: Normal appearance of the aortic valve. Tricuspid Valve: Normal appearance of the tricuspid valve. Estimated peak RVSP is 17 mmHg. Mild tricuspid regurgitation. Pulmonic Valve: Normal appearance of the pulmonic valve. Pericardium: Normal pericardium with no significant pericardial effusion. Aorta: Normal aortic root. IVC: Normal size and normal respiratory collapse consistent with normal right atrial pressure (<5 mmHg). Pulmonary Artery: Normal pulmonary artery size. CONCLUSIONS: Normal left ventricular size. Normal left ventricular wall thickness. Left ventricular systolic function at the lower limit of normal. Impaired diastolic relaxation Grade I. Ejection fraction is measured at 60 %. Ejection Fraction is visually estimated to be 50-55 %. Global Longitudinal Strain is -15 %. The left atrium is normal in size. No significant valve dysfunction. Electronically Signed By: Tone Saba MD, [facility] 04/23/2025 4:08:46 PM CDT Procedure Note Tone Saba MD - 04/23/2025 [facility] Cardiology [address], [place] [address] [address] [facility] [address], [place] [address] P:[phone] P:[phone] Echocardiographic Report Patient Name: EZE HARO K : 1960 Study Date: 04/23/2025 10:19:00 AM Gender: M Structural Engineering Drafting Officer: Navya Lucia (R)(CT), [facility] Location: [place] [facility] Provider: COLT DE LEÓN Height(Cm): 170 BSA: 1.93 Weight(Kg): 78.9 Heart Rate: 71 BP: 111 / 70 Quality: Good Order Provider: COLT DE LEÓN PROCEDURES: Echocardiographic Report: Transthoracic echocardiogram with complete 2D, M-Mode, and color Dopplerexamination. With Strain Analysis. INDICATIONS: I10 Essential (primary) hypertension. MEASUREMENTS: 2D/MM Value Range Doppler ValueRange EF Mod BP 60 % [ 52 - 72 ] BERTRAM Vmax 2.47cm2 [ 2.00 - 4.00 ] Estimated EF 50-55 % AV Mean PG 3mmHg LV GLS -15.13 % AV Peak Blanco 1.15m/s [ 1.00 - 1.70 ] LVIDd 2D 3.89 cm [ 4.20 - 5.80 ] AV Peak PG 5mmHg LVIDs 2D 2.58 cm [ 2.50 - 4.00 ] AV VTI 23.31cm LVPWd 2D 0.95 cm [ 0.60 - 1.00 ] LVOT Diam 2.04cm [ 1.70 - 2.10 ] IVSd 2D 1.06 cm [ 0.60 - 1.00 ] LVOT Peak Blanco 0.87m/s [ 0.70 - 1.10 ] AoR Diam 2D 3.94 cm [ 3.10 - 3.70 ] LVOT VTI 16.91cm LA Volume 28.73 ml [ 18.00 - 58.00 ] MV E Peak Blanco 0.60m/s [ 0.60 - 1.30 ] LA Volume Index 15 cc/m2 [ 16 - 28 ] MV A Peak Blanco 0.88m/s [ 1.00 - 1.20 ] RA Volume 28.69 ml MV Decel Time 222msec [ 104 - 258 ] PV Peak Blanco 0.98 m/s [ 0.40 - 0.80 ] TR Peak Blanco 2.18 m/s [ 1.00 - 2.80 ] TR Peak PG 19 mmHg RVSP 17.00 mmHg [ 10.00 - 36.00 ] RV S` 11.08 mmHg Lateral E` 0.10 m/s [ 0.10 - 0.15 ] Septal E` 0.06 m/s [ 0.08 - 0.15 ] E` 0.08 m/s E/E` 7 Tapse 1.87 cm [ 1.71 - 5.00 ] 2D/MM Value Range Doppler ValueRange - FINDINGS: Interpretation Site: Exam was interpreted at [facility]. Left Ventricle: Normal left ventricular size. Normal left ventricular wall thickness. Leftventricular systolic function at the lower limit of normal. Impaired diastolicrelaxation Grade I. Ejection fraction is measured at 60 %. Ejection Fraction is visuallyestimated to be 50-55 %. Global Longitudinal Strain is -15 %. Right Ventricle: Normal right ventricular size. Left Atrium: The left atrium is normal in size. Right Atrium: The right atrium is normal in size. Atrial Septum: Normal atrial septum. Mitral Valve: Normal appearance of the mitral valve. Aortic Valve: Normal appearance of the aortic valve. Tricuspid Valve: Normal appearance of the tricuspid valve. Estimated peak RVSP is 17 mmHg.Mild tricuspid regurgitation. Pulmonic Valve: Normal appearance of the pulmonic valve. Pericardium: Normal pericardium with no significant pericardial effusion. Aorta: Normal aortic root. IVC: Normal size and normal respiratory collapse consistent with normal rightatrial pressure (<5 mmHg). Pulmonary Artery: Normal pulmonary artery size. CONCLUSIONS: Normal left ventricular size. Normal left ventricular wall thickness. Leftventricular systolic function at the lower limit of normal. Impaired diastolicrelaxation Grade I. Ejection fraction is measured at 60 %. Ejection Fraction is visuallyestimated to be 50-55 %. Global Longitudinal Strain is -15 %. The left atrium is normal in size. No significant valve dysfunction. Electronically Signed By: Tone Saba MD, FACC 04/23/2025 4:08:46 PM CDT us Colt De León MD CV ECHO PROCEDURES F inal Result * CTA Abdomen Pelvis (04/15/2025 11:07 AM CDT) Anatomical Region Laterality Modality Body N/A Computed Tomogra phy 04/21/2025 1:37 PM CDT Narrative 04/21/2025 1:59 PM CDT EXAM DESCRIPTION: CTA ABDOMEN PELVIS REASON FOR STUDY: S/P EVAR Post-op aftercare TECHNIQUE: CTA scan of the abdomen and pelvis performed without and with intravenous and without oral contrast using helical scanning technique with dynamic intravenous contrast injection. Precontrast, arterial, and portal venous phase images of the abdomen and pelvis were acquired. Images reviewed with lung, soft tissue and bone windows. Reconstructed coronal and sagittal MPR images reviewed. All images stored on PACS. 3D MIP images rendered on scanning unit and reviewed at time of interpretation. Automated exposure control was used as a dose optimization technique for this examination. CONTRAST TYPE/DOSE: 75mL of IOVERSOL 350 MG IODINE/ML INTRAVENOUS SYRINGE injected via intravenous COMPARISON: Outside CT dated January 30, 2025 FINDINGS: VASCULATURE: There is been interval placement of a infrarenal endovascular stent with paired stents seen extending into the bilateral common iliac vasculature, right external iliac artery, right internal iliac artery and left external iliac artery. Occlusion device is seen at the left internal iliac artery. On arterial phase imaging the endovascular stent is widely patent. 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 There is aneurysmal dilatation of the right common iliac artery measuring a maximum of 4.9 cm (series 5, image 171; previously 4.9 cm). There is aneurysmal dilatation of the left common iliac artery measuring a maximum of 3.4 cm (series 5, image 172; previously 3.6 cm remeasured). No large vessel occlusion. Leak On more delayed imaging there is no convincing evidence of a endoleak. CELIAC TRUNK: No flow limiting stenosis, dissection, or aneurysm. SUPERIOR MESENTERIC ARTERY: No flow limiting stenosis, dissection, or aneurysm. RIGHT RENAL ARTERY: No flow limiting stenosis, dissection, or aneurysm. LEFT RENAL ARTERY: No flow limiting stenosis, dissection, or aneurysm. INFERIOR MESENTERIC ARTERY: No flow limiting stenosis, dissection, or aneurysm. AORTA: As above ILIAC ARTERIES: As above LOWER CHEST: No significant pulmonary abnormalities. No effusion. LIVER: Normal size. No identified cystic or solid masses. GALLBLADDER: No stones identified. No wall thickening or inflammatory changes. BILE DUCTS: No intrahepatic or extrahepatic ductal dilatation. SPLEEN: Normal size. No focal lesions. PANCREAS: No identified cystic or solid masses. No significant calcifications. No adjacent inflammation or peripancreatic fluid collections. Pancreatic duct not dilated. ADRENALS: Normal. KIDNEYS/URINARY TRACT: No identified significant cystic or solid masses. No stones. No hydronephrosis or hydroureter. Symmetric enhancement. Normal bladder. GI: No dilated bowel loops. No obvious wall thickening. Normal appendix. Uncomplicated diverticular disease. PERITONEUM: No ascites or free air. RETROPERITONEUM: No mass or adenopathy. REPRODUCTIVE: No significant abnormality. MUSCULOSKELETAL: No significant abnormality. OTHER: No other abnormality. IMPRESSION: 1. Interval placement of a infrarenal endovascular stent with paired stents seen extending into the bilateral common iliac vasculature, right external iliac artery, right internal iliac artery and left external iliac artery. Occlusion device is seen at the left internal iliac artery. 2. 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 3. 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 4. Aneurysmal dilatation of the left common iliac artery measuring a maximum of 3.4 cm (previously 3.6 cm remeasured). 5. No convincing evidence of a endoleak. 6. Uncomplicated diverticular disease. THIS IS AN ELECTRONICALLY VERIFIED FINAL REPORT 04/21/2025 1:59 PM - Electronically signed by Dwayne Lindquist M.D. JA: SU Report ID: [id number] Reading Location: [place] [address] Procedure Note Dwayne Lindquist MD - 04/21/2025 EXAM DESCRIPTION: CTA ABDOMEN PELVIS REASON FOR STUDY: S/P EVAR Post-op aftercare TECHNIQUE: CTA scan of the abdomen and pelvis performed without and with intravenous and without oral contrast using helical scanning techniquewith dynamic intravenous contrast injection. Precontrast, arterial, and portal venous phase images of the abdomen and pelvis were acquired. Images reviewed with lung, soft tissue and bone windows. Reconstructed coronaland sagittal MPR images reviewed. All images stored on PACS. 3D MIP images rendered on scanning unit and reviewed at time of interpretation.Automated exposure control was used as a dose optimization technique for this examination. CONTRAST TYPE/DOSE: 75mL of IOVERSOL 350 MG IODINE/ML INTRAVENOUSSYRINGE injected via intravenous COMPARISON: Outside CT dated January 30, 2025 FINDINGS: VASCULATURE: There is been interval placement of a infrarenalendovascular stent with paired stents seen extending into the bilateral common iliac vasculature, right external iliac artery, right internal iliac artery andleft external iliac artery. Occlusion device is seen at the left internaliliac artery. On arterial phase imaging the endovascular stent is widely patent. Thereis a large pseudo aneurysmal sac measuring a maximum of 5.5 x 5.1 cm (series 5, image 120; previously 5.5 x 5.4 cm remeasured). There is aneurysmal dilatation of the right common iliac artery measuringa maximum of 4.9 cm (series 5, image 171; previously 4.9 cm). There is aneurysmal dilatation of the left common iliac artery measuring a maximumof 3.4 cm (series 5, image 172; previously 3.6 cm remeasured). No largevessel occlusion. Leak On more delayed imaging there is no convincing evidence of a endoleak. CELIAC TRUNK: No flow limiting stenosis, dissection, or aneurysm. SUPERIOR MESENTERIC ARTERY: No flow limiting stenosis, dissection, or aneurysm. RIGHT RENAL ARTERY: No flow limiting stenosis, dissection, or aneurysm. LEFT RENAL ARTERY: No flow limiting stenosis, dissection, or aneurysm. INFERIOR MESENTERIC ARTERY: No flow limiting stenosis, dissection, or aneurysm. AORTA: As above ILIAC ARTERIES: As above LOWER CHEST: No significant pulmonary abnormalities. No effusion. LIVER: Normal size. No identified cystic or solid masses. GALLBLADDER: No stones identified. No wall thickening or inflammatory changes. BILE DUCTS: No intrahepatic or extrahepatic ductal dilatation. SPLEEN: Normal size. No focal lesions. PANCREAS: No identified cystic or solid masses. No significant calcifications. No adjacent inflammation or peripancreatic fluidcollections. Pancreatic duct not dilated. ADRENALS: Normal. KIDNEYS/URINARY TRACT: No identified significant cystic or solid masses.No stones. No hydronephrosis or hydroureter. Symmetric enhancement. Normal bladder. GI: No dilated bowel loops. No obvious wall thickening. Normalappendix. Uncomplicated diverticular disease. PERITONEUM: No ascites or free air. RETROPERITONEUM: No mass or adenopathy. REPRODUCTIVE: No significant abnormality. MUSCULOSKELETAL: No significant abnormality. OTHER: No other abnormality. IMPRESSION: 1. Interval placement of a infrarenal endovascular stent with pairedstents seen extending into the bilateral common iliac vasculature, right external iliac artery, right internal iliac artery and left external iliac artery. Occlusion device is seen at the left internal iliac artery. 2. 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 3. 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 4. Aneurysmal dilatation of the left common iliac artery measuring amaximum of 3.4 cm (previously 3.6 cm remeasured). 5. No convincing evidence of a endoleak. 6. Uncomplicated diverticular disease. THIS IS AN ELECTRONICALLY VERIFIED FINAL REPORT 04/21/2025 1:59 PM - Electronically signed by Dwayne Lindquist M.D. JA: SU Report ID: [id number] Reading Location: [place] [address] Cristi Thayer MD IMG CT PROCEDURES Final Result * (ABNORMAL) POCT lipid panel (03/30/2025 12:53 PM CDT) Cholesterol, POC 167 <200 MG/DL HDL, POC 37(A) >=40 mg/dL Triglycerides, POC 206(A) <=149 mg/dL LDL Cholesterol POC 89 <=129 mg/dL Chol/HDL Ratio, POC 2.4 NONE Non-HDL Cholesterol, POC 130 NONE mg/dL Cholesterol Total, POC 167 30 - 199 mg/dL Capillary blood 03/30/2025 1 2:53 PM CDT us Colt De León MD POINT OF CARE TEST O RDERABLES Final Result * eGFR (03/10/2025 4:29 AM CDT) eGFR >90 >=60 mL/min/1. 73 m2 Comment: Interpretive Data Reference Interval Normal >/= 90 mL/min/1.73m2 Mildly decreased* 60 - 89 mL/min/1.73m2 Mildly to moderately decreased 45 - 59 mL/min/1.73m2 Moderately to severely decreased 30 - 44 mL/min/1.73m2 Severely decreased 15 - 29 mL/min/1.73m2 Kidney Failure < 15 mL/min/1.73m2 *Relative to young adult level Estimated glomerular filtration rate is determined by the 2020 CKD-EPI equation recommended by the [employer] (A Unifying Approach to GFR Estimation: Recommendations of the NKF-ASK Task Force on Reassessing the Inclusion of Race in Diagnosing Kidney Disease, JASN 2020). The CKD-EPI equation should not be used for patients with unstable renal function and has not been validated in children and those over 70. Current interpretive data was last reviewed 2021. Blood 03/10/2025 4:29 AM CDT 03/10/2025 5:09 AM CDT us Cristi Thayer MD LAB BLOOD ORDERABLES Final Resul t NANCY [address] [place] [address] [place] [address] * (ABNORMAL) CBC without differential (03/10/2025 4:29 AM CDT) [facility] WBC 13.94(H) 3.80 - 9.90 K/cumm Hgb 11.0(L) 13.0 - 17.5 g/dL [facility] Hct 33.4(L) 38.9 - 50.3 % [facility] Plt 179 150 - 400 K/cumm [facility] MPV 11.1 9.1 - 12.3 fL [facility] RBC 3.62(L) 4.30 - 5.80 M/cumm [facility] MCV 92.3 81.3 - 96.4 fL [facility] MCH 30.4 27.1 - 33.3 pg [facility] MCHC 32.9 32.3 - 35.7 g/dL [facility] RDW CV 13.4 11.1 - 14.9 % [facility] RDW SD 45.6 35.7 - 48.1 fL [facility] NRBC abs 0.00 0.00 - 0.01 K/cumm [facility] Blood 03/10/2025 4:29 AM CDT 03/10/2025 5:09 AM CDT Cristi Thayer MD LAB BLOOD ORDERABLES Final Resul t [address] [place] [address] * Basic metabolic panel (03/10/2025 4:29 AM CDT) [facility] Sodium 138 135 - 145 mmol/L Potassium, pl 4.0 3.3 - 4.9 mmol/L [facility] Chloride 104 97 - 110 mmol/L [facility] CO2 24 22 - 32 mmol/L [facility] Anion gap 10 2 - 15 mmol/L [facility] BUN 16 6 - 25 mg/dL [facility] Creatinine 0.88 0.80 - 1.30 mg/dL [facility] Glucose 117 70 - 199 mg/dL [facility] Comment: Interpretive Data Fasting glucose >/= 126 mg/dl is diagnostic for diabetes. Fasting is defined as no caloric intake for at least 8 hours. Fasting glucose between 100 mg/dl to 125 mg/dl is diagnostic of prediabetes. In a patient with classic symptoms of hyperglycemia or hyperglycemic crisis, a random glucose >/= 200 mg/dl is diagnostic for diabetes. In the absence of unequivocal hyperglycemia, results should be confirmed by repeat testing. The classification and Diagnosis of Diabetes Diabetes Care 2021; 46: S19-S40. Current interpretive data was last revised 2022. Calcium 8.5 8.5 - 10.3 mg/dL [facility] ESCOTO Blood 03/10/2025 4:29 AM CDT 03/10/2025 5:09 AM CDT Cristi Thayer MD LAB BLOOD ORDERABLES Final Resul t [facility] [address] [facility] Department [place] [address] from Last 3 Months Insurance [email or web address] ADVANTAGE CHOICE PPO Advance Directives For more information, please contact: [phone] * Full Code (Latest Code Status on File) Date Activated Date Inactivated Comments 03/09/2025 12:42 PM 03/10/2025 4:56 PM Care Teams Hose Stripper Relationship Specialty Start Date End Date Yashira Zaman MD [address] [address] [address] [place] [address] PCP - General Family Practice 01/13/25 Sharif Bell MD [address] [place] [id number] Referring Physician Cardiology 02/24/25
[2025-06-10 19:00] LABS: Hemoglobin A1C 5.5 % (<5.7)
== END 2025-06-10 13:49 | disposition home or self-care (01) ==
LOC: ANHGOSHLAB 13:48
PROVIDERS: PCP Family Medicine; Visit Provider Family Medicine
DX: R73.03 Prediabetes (principal); D72.829 Elevated white blood cell count, unspecified; I10 Essential (primary) hypertension
CPT/HCPCS: 36415; 80053; 83036; 85025